=== PATIENT | male | born 1965 | race Caucasian/White ===

== ENCOUNTER 2018-06-30 07:11 | Day surgery (SDC) | payer OTHER ==
[~2018-06-30] VITALS: Ht 162.6 cm; Wt 78.5 kg
[2018-06-30] MEDS ORDERED: SITA100T8 PO (08:34)
[2018-06-30] MEDS ORDERED: GLIP10TA12 PO (08:34)
[2018-06-30] MEDS ORDERED: METF500T PO (08:34)
[2018-06-30] MEDS ORDERED: METO25TE2 PO (08:34)
[2018-06-30] MEDS ORDERED: KETOROLAC 30 MG/ML VIAL ONE (09:47)
[2018-06-30] MEDS ORDERED: LIDOCAINE 2% 100 MG/5 ML UJET TP ONE (09:47)
== END 2018-06-30 11:13 | disposition home or self-care (01) ==
LOC: MDS 07:11 → MMU 07:12 → MDS 11:13
PROVIDERS: ATTEND Internal Medicine Gastroenterology
DX: D12.2 Benign neoplasm of ascending colon (principal); K64.8 Other hemorrhoids; K57.30 Diverticulosis of large intestine without perforation or abscess without bleeding; C18.7 Malignant neoplasm of sigmoid colon; I10 Essential (primary) hypertension; E11.9 Type 2 diabetes mellitus without complications; E66.3 Overweight; E78.00 Pure hypercholesterolemia, unspecified; Z98.890 Other specified postprocedural states; Z87.891 Personal history of nicotine dependence; Z79.84 Long term (current) use of oral hypoglycemic drugs; Z79.4 Long term (current) use of insulin; Z79.899 Other long term (current) drug therapy; Z86.73 Personal history of transient ischemic attack (TIA), and cerebral infarction without residual deficits
CPT/HCPCS: 45385; 82948; J1885